=== PATIENT | female | born 1955 | race Caucasian/White ===

== ENCOUNTER 2021-04-09 16:03 | Emergency (ER) | payer OTHER, BC ==
[~2021-04-09] VITALS: Ht 165.1 cm; Wt 84.0 kg
[~2021-04-09 16:03] MED LIST: CENESTIN1.25 MG OR; LEXAPRO20 MG OR; VALTREX500 MG OR; WELLBUTRIN150 MG OR
[2021-04-09] MEDS ORDERED: COZAAR50 MG PO (16:48)
[2021-04-09 18:35] VITALS: BP 165/75
== END 2021-04-09 18:35 | disposition home or self-care (01) | DRG 605 ==
LOC: ED 16:03
DX: S80.12XA Contusion of left lower leg, initial encounter (principal); I10 Essential (primary) hypertension; W50.0XXA Accidental hit or strike by another person, initial encounter; Y93.89 Activity, other specified; Y92.89 Other specified places as the place of occurrence of the external cause; Y99.0 Civilian activity done for income or pay